=== PATIENT | female | born 1950 | race Caucasian/White ===

== ENCOUNTER → 2016-12-14 | Outpatient (CLI) | payer MEDICARE | LOC: LABWHC1 13:05 | PROVIDERS: ATTEND Internal Medicine Endocrinology, Diabetes & Metabolism | DX: C73 Malignant neoplasm of thyroid gland (principal); E89.0 Postprocedural hypothyroidism | CPT/HCPCS: 36415; 84432; 84439; 84443; 86800 ==

== ENCOUNTER → 2017-04-04 | Outpatient (CLI) | payer MEDICARE | END | disposition home or self-care (01) | LOC: LABWHC1 11:01 | PROVIDERS: ATTEND Internal Medicine Endocrinology, Diabetes & Metabolism | DX: E89.0 Postprocedural hypothyroidism (principal) | CPT/HCPCS: 36415; 84439; 84443 ==

== ENCOUNTER → 2017-08-13 | Outpatient (CLI) | payer MEDICARE ==
--- NOTE | 2017-08-13 19:57 | BD ---
EXAMINATION TYPE: MG DEXA axial skeleton. DATE OF EXAM: 08/13/2017 COMPARISON: 08/10/2015 CLINICAL HISTORY: 66 year-old male asymptomatic postmenopausal screening Height: 63.5 IN Weight: 152 LBS FRAX RISK QUESTIONS: Alcohol (3 or more units per day): NO Family History (Parent hip fracture): NO Glucocorticoids (More than 3mos): NO (Ex: prednisone, prednisolone, methylprednisolone, dexamethasone, and hydrocortisone). History of Fracture in Adulthood: YES LT FOOT FX, AND PATELLA FX Secondary Osteoporosis: 1. Type 1 Diabetes: NO 2. Hyperthyroidism: NO 3. Menopause before 45: AGE 47 4. Malnutrition: NO 5. Chronic liver disease: NO Rheumatoid Arthritis: NO Current Tobacco Use: NO RISK FACTORS HISTORY OF: Active: YES Postmenopausal woman: AGE 47 Take estrogen and/or progesterone medications: NOT NOW How long: AGE 47 - 52 MEDICATIONS: Thyroid Medications: Which medication: Synthroid How Long: SINCE 2000 Osteoporosis Medications: YES Which medication: Boniva How Long: OFF AND ON FOR 10 YEARS Additional Medications: CALCIUM, VIT D, BONIVA, SYNTHROID, MOBIC, AVNI-D, FISH OIL, MULTI VIT, BIO TIN, Additional History: THYROID CANCER WITH NUCLEAR RADIATION EXAM MEASUREMENTS: Bone mineral densitometry was performed using the [employer] System. Bone mineral density as measured about the Lumbar spine is: ----- L1-L4(G/cm2): 1.171 T Score Values are as follows: ----- L2: 0.0 ----- L3: 0.7 ----- L4: -0.1 ----- L1-L4: -0.1 Bone mineral density has: Decreased -0.2% since study of: 08/10/2015 Bone mineral density about the R hip (g/cm2): 0.896 Bone mineral density about the L hip (g/cm2): 0.859 T Score values are as follows: -----R Neck: -1.0 -----L Neck: -1.3 -----R Total: -0.3 -----L Total: 0.0 Bone mineral density has: Decreased -0.2% since study of: 08/10/2015 IMPRESSION: Osteopenia (T Score between -2.5 and -1 as noted by T score values There is slightly increased risk of fracture and the patient may be considered for treatment. Re-Screen 2-5 years. NOTE: T-SCORE=SD OF THE YOUNG ADULT MEAN.
--- NOTE | 2017-08-15 10:16 | MM ---
Reason for exam: screening (asymptomatic). Last mammogram was performed 1 year and 1 month ago. History: Patient is postmenopausal and has history of other cancer at age 50. Family history of breast cancer in maternal aunt. Taking other hormone for 10 years. Physical Findings: A clinical breast exam by your physician is recommended on an annual basis and results should be correlated with mammographic findings. MG 3D Screening Mammo W/Cad Bilateral CC and MLO view(s) were taken. Prior study comparison: July 22, 2016, bilateral MG 3d screening mammo w/cad. March 10, 2015, bilateral MG screening mammo w CAD. The breast tissue is heterogeneously dense. This may lower the sensitivity of mammography. No significant changes when compared with prior studies. ASSESSMENT: Negative, BI-RAD 1 RECOMMENDATION: Routine screening mammogram of both breasts in 1 year.
== END | disposition home or self-care (01) ==
LOC: RADMAMWWP 10:00
PROVIDERS: ATTEND Obstetrics & Gynecology
DX: Z12.31 Encounter for screening mammogram for malignant neoplasm of breast (principal); M85.852 Other specified disorders of bone density and structure, left thigh; M85.851 Other specified disorders of bone density and structure, right thigh
CPT/HCPCS: 77080; 77063; G0202

== ENCOUNTER → 2017-09-06 | Outpatient (CLI) | payer MEDICARE ==
--- NOTE | 2017-09-06 12:46 | ECHOF ---
Referral Reason:Abnormal EKG R94.31 MEASUREMENTS -------- HEIGHT: 162.6 cm WEIGHT: 68.0 kg BP: 102/56 RVIDd: 2.9 cm (< 3.3) IVSd: 1.1 cm (0.6 - 1.1) LVIDd: 3.8 cm (3.9 - 5.3) LVPWd: 1.1 cm (0.6 - 1.1) IVSs: 1.4 cm LVIDs: 2.9 cm LVPWs: 1.5 cm LA Diam: 3.3 cm (2.7 - 3.8) LAESV Index (A-L): 11.83 ml/m Ao Diam: 3.1 cm (2.0 - 3.7) AV Cusp: 1.9 cm (1.5 - 2.6) MV EXCURSION: 14.664 mm (> 18.000) MV EF SLOPE: 42 mm/s (70 - 150) EPSS: 0.8 cm MV E Nikhil: 0.59 m/s MV DecT: 185 ms MV A Nikhil: 0.64 m/s MV E/A Ratio: 0.92 RAP: 5.00 mmHg RVSP: 20.98 mmHg FINDINGS -------- Sinus rhythm. This was a technically good study. The left ventricular size is normal. There is borderline concentric left ventricular hypertrophy. Overall left ventricular systolic function is normal with, an EF between 55 - 60 %. The right ventricle is normal in size. Normal LA size by volume 22+/-6 ml/m2. The right atrium is normal in size. The aortic valve is trileaflet and appears structurally normal. Mild mitral annular calcification present. There is trace to mild mitral regurgitation. Mild tricuspid regurgitation present. Right ventricular systolic pressure is normal at < 35 mmHg. Trace/mild (physiologic) pulmonic regurgitation. The aortic root size is normal. Normal inferior vena cava with normal inspiratory collapse consistent with estimated right atrial pre ssure of 5 mmHg. There is no pericardial effusion. CONCLUSIONS -------- 1. Sinus rhythm. 2. This was a technically good study. 3. The left ventricular size is normal. 4. There is borderline concentric left ventricular hypertrophy. 5. Overall left ventricular systolic function is normal with, an EF between 55 - 60 %. 6. The right ventricle is normal in size. 7. Normal LA size by volume 22+/-6 ml/m2. 8. The right atrium is normal in size. 9. The aortic valve is trileaflet and appears structurally normal. 10. Mild mitral annular calcification present. 11. There is trace to mild mitral regurgitation. 12. Mild tricuspid regurgitation present. 13. Right ventricular systolic pressure is normal at < 35 mmHg. 14. Trace/mild (physiologic) pulmonic regurgitation. 15. The aortic root size is normal. 16. Normal inferior vena cava with normal inspiratory collapse consistent with estimated right atrial pressure of 5 mmHg. 17. There is no pericardial effusion. [employer] OPERATOR: Jayashree Avina RDCS
--- NOTE | 2017-09-06 12:57 | ECHOS ---
STRESS ECHOCARDIOGRAM DATE OF SERVICE: 09/06/2017 INDICATIONS: Abnormal EKG. MEDICATIONS: Boniva, Synthroid, Mobic. BASELINE HEART RATE: 81 BASELINE BLOOD PRESSURE: 102/68 MAXIMUM HEART RATE: 138 MAXIMUM BLOOD PRESSURE: 194/92 85% MPHR: 129 100% MPHR: 152 METS: 10.3 MAXIMUM STAGE REACHED: 3 TOTAL EXERCISE TIME: 9:00 CLINICAL INFORMATION: Baseline EKG revealed normal sinus rhythm with nonspecific ST and T-wave abnormality in the inferolateral leads. Patient walked on standard Jaime protocol for 9 minutes, achieved a maximum heart rate of 138 beats per minute which is more than 85% of predicted maximum. Resting heart rate is 81 beats per minute. Resting blood pressure was 102/68 and peak blood pressure was 194/92. EKG revealed nonspecific ST-T changes. There was no arrhythmia and she did not have any angina. By EKG criteria, this is an inconclusive stress test because of resting EKG changes with a reasonably decent exercise capacity. Baseline echo images revealed normal wall motion and wall thickening of all segments. At peak exercise, there was good augmentation of left ventricular wall motion and wall thickening of all segments suggesting that there was no evidence of stress-induced ischemia on this study. FINAL IMPRESSION: 1. Good exercise capacity with inconclusive stress test by EKG criteria because of resting EKG changes. 2. Normal stress echocardiogram without evidence of ischemia. MMODL / IJN: [id number] /
== END | disposition home or self-care (01) ==
LOC: RADNMMAIN 10:36
PROVIDERS: ATTEND Family Medicine
DX: I08.1 Rheumatic disorders of both mitral and tricuspid valves (principal)
CPT/HCPCS: 93017; 93306; 93350

== ENCOUNTER → 2018-03-26 | Outpatient (CLI) | payer MEDICARE ==
[2018-03-26 12:18] LABS: T4, Free (Free Thyroxine) 1.8 ng/dL (0.78-2.19)
[2018-03-26 19:27] LABS: Thyroglobulin <0.20 ng/mL (1.60-59.90)
== END | disposition home or self-care (01) ==
LOC: LABWHC1 11:18
PROVIDERS: ATTEND Internal Medicine Endocrinology, Diabetes & Metabolism
DX: C73 Malignant neoplasm of thyroid gland (principal); E89.0 Postprocedural hypothyroidism
CPT/HCPCS: 36415; 84432; 84439; 84443; 86800

== ENCOUNTER → 2018-07-30 | Outpatient (CLI) | payer MEDICARE ==
[2018-07-31 05:46] LABS: T4, Free (Free Thyroxine) 1.2 ng/dL (0.80-1.80)
== END | disposition home or self-care (01) ==
LOC: LABWHC1 16:50
PROVIDERS: ATTEND Internal Medicine Endocrinology, Diabetes & Metabolism
DX: C73 Malignant neoplasm of thyroid gland (principal)
CPT/HCPCS: 36415; 84439; 84443

== ENCOUNTER → 2018-08-14 | Outpatient (CLI) | payer MEDICARE ==
--- NOTE | 2018-08-14 11:25 | BD ---
EXAMINATION TYPE: Axial Bone Density DATE OF EXAM: 08/14/2018 COMPARISON: 2017 CLINICAL HISTORY: age related osteoporosis Height: 5'4 1/2 Weight: 137 FRAX RISK QUESTIONS: History of Fracture in Adulthood: y Secondary Osteoporosis: RISK FACTORS HISTORY OF: Postmenopausal woman: y MEDICATIONS: Thyroid Medications: Which medication: Synthroid How Lon Osteoporosis Medications: Which medication: Boniva How Lon years Additional Medications: arthritis, eye drops Additional History: thyroid cancer 2000 , thyroidectomy EXAM MEASUREMENTS: Bone mineral densitometry was performed using the [employer] System. Bone mineral density as measured about the Lumbar spine is: ----- L1-L4(G/cm2): 1.192 T Score Values are as follows: ----- L2: 0.2 ----- L3: 0.7 ----- L4: 0.4 ----- L1-L4:0.1 Bone mineral density has: Increased 2.4% since study of: 08/13/2017 Bone mineral density about the R hip (g/cm2): 0.888 Bone mineral density about the L hip (g/cm2): 0.865 T Score values are as follows: -----R Neck: -1.1 -----L Neck: -1.2 -----R Total: -0.4 -----L Total: -0.1 Bone mineral density has: Decreased -0.8% since study of: 08/13/2017 IMPRESSION: No evidence for osteoporosis or osteopenia. NOTE: T-SCORE=SD OF THE YOUNG ADULT MEAN.
--- NOTE | 2018-08-16 12:57 | MM ---
Reason for exam: screening (asymptomatic). Last mammogram was performed 1 year ago. History: Patient is postmenopausal and has history of other cancer at age 50. Family history of breast cancer in maternal aunt. Taking other hormone for 10 years. Physical Findings: A clinical breast exam by your physician is recommended on an annual basis and results should be correlated with mammographic findings. MG 3D Screening Mammo W/Cad Bilateral CC and MLO view(s) were taken. Prior study comparison: August 13, 2017, bilateral MG 3d screening mammo w/cad. July 22, 2016, bilateral MG 3d screening mammo w/cad. The breast tissue is heterogeneously dense. This may lower the sensitivity of mammography. There are benign appearing round calcifications bilaterally. There is no discrete abnormality. ASSESSMENT: Benign, BI-RAD 2 RECOMMENDATION: Routine screening mammogram of both breasts in 1 year.
== END ==
LOC: RADMAMWWP 08:02
PROVIDERS: ATTEND Obstetrics & Gynecology
DX: Z12.31 Encounter for screening mammogram for malignant neoplasm of breast (principal); M81.0 Age-related osteoporosis without current pathological fracture
CPT/HCPCS: 77063; 77067; 77080

== ENCOUNTER → 2018-09-30 | Outpatient (CLI) | payer MEDICARE ==
--- NOTE | 2018-09-30 18:16 | XR ---
EXAMINATION TYPE: XR Hip Bilateral Complete DATE OF EXAM: 09/30/2018 COMPARISON: NONE HISTORY: 68 year-old female chronic hip pain, mostly on the left side, osteoarthritis TECHNIQUE: 2 views each side FINDINGS: There is mild marginal spurring at the hips, left greater than right. There may be minimal axial join t space narrowing on both sides. Sclerotic focus left superior pubic ramus nonspecific, possible bone island. No acute fracture, subluxation, or dislocation. IMPRESSION: 1. Very mild degenerative changes on both sides, left greater than right. 2. No acute osseous modality seen. 3. 1.9 cm sclerotic focus left superior pubic ramus probably incidental bone island. If an underlying osteoblastic lesion is clinically suspected, CT of the pelvis can be considered. Whole body bone sca n yay also be considered to survey the entire skeleton if indicated.
== END | disposition home or self-care (01) ==
LOC: RADXRMAIN 11:04
PROVIDERS: ATTEND Family Medicine
DX: M16.0 Bilateral primary osteoarthritis of hip (principal)
CPT/HCPCS: 73521

== ENCOUNTER → 2018-10-08 | Outpatient (CLI) | payer MEDICARE ==
[2018-10-08 09:45] LABS: Blood Urea Nitrogen 19 mg/dL (7-17)
--- NOTE | 2018-10-08 10:53 | CT ---
EXAMINATION TYPE: CT pelvis w con DATE OF EXAM: 10/08/2018 COMPARISON: X-ray 09/30/2018 HISTORY: Left hip benign neoplasm of bone CT DLP: 620.4 mGycm Automated exposure control for dose reduction was used. CONTRAST: Performed with IV Contrast, patient injected with 100 mL of Isovue 300. FINDINGS: There is mild marginal spurring at the hips. There may be minimal axial joint space narrowing on both sides. Sclerotic focus left superior pubic ramus nonspecific, possible bone island. No acute fractur e, subluxation, or dislocation. No soft tissue mass. Severe degenerative change lower lumbar spine. Diffuse osteopenia noted. Parapelvic renal cysts are s een. There is a large 5.1 cm left adnexal cyst. Multiple right-sided renal calculi. Suspect bilateral mild hydronephrosis. IMPRESSION: ARTHROPATHY. SCLEROTIC LESION IS NONSPECIFIC BUT LIKELY RELATED TO BONE ISLAND. IF THERE IS A HISTORY OF MALIGNANCY THAN CORRELATION WITH BONE SCAN COULD BE OBTAINED TO ASSESS FOR ACTIVITY. FINDING MOST LIKELY IS BENIGN. THERE IS A LARGE LEFT ADNEXAL CYST MEASURING 5.1 CM LIKELY IS OVARIAN IN ETIOLOGY. THIS IS SOMEWHAT A TYPICAL GIVEN THE PATIENT'S DEMOGRAPHICS RECOMMEND FOLLOW-UP ULTRASOUND PELVIS. MULTIPLE RIGHT-SIDED RENAL CALCULI NOTED SUSPECTED BILATERAL MILD HYDRONEPHROSIS HETEROGENEOUS DENSITY IN THE BLADDER LIKELY REPRESENTS MIXING OF CONTRAST AND URINE. CORRELATE CLINIC SAMIRA..
== END ==
LOC: RADCTMAIN 08:09
PROVIDERS: ATTEND Family Medicine
DX: D16.9 Benign neoplasm of bone and articular cartilage, unspecified (principal)
CPT/HCPCS: 82565; 84520; 72193; 36415; Q9967

== ENCOUNTER → 2018-10-22 | Outpatient (CLI) | payer MEDICARE ==
--- NOTE | 2018-10-22 16:19 | NM ---
EXAMINATION TYPE: NM bone scan whole body DATE OF EXAM: 10/22/2018 COMPARISON: NONE HISTORY: Hypertrophy of bone Delayed whole-body scanning was performed following the injection of 23.7 mCi Tc 99m MDP. Images acq uired 3 hours post injection. FINDINGS: Uptake is again noted throughout the upper and lower cervical spine. There is also mild increased upt vivian seen at the thoracolumbar junction as well as well as within the lumbar spine likely degenerative in nature. Focal increased uptake is seen at the left AC joint which may be degenerative in nature. Degenerative uptake is seen about the right knee as well as the right foot and first metatarsophalang eal joints bilaterally. IMPRESSION: Probable degenerative changes noted. Overall no significant change appreciated.
== END | disposition home or self-care (01) ==
LOC: RADNMMAIN 09:55
PROVIDERS: ATTEND Family Medicine
DX: M89.30 Hypertrophy of bone, unspecified site (principal)
CPT/HCPCS: 78306; A9503

== ENCOUNTER → 2019-03-28 | Outpatient (CLI) | payer MEDICARE ==
[2019-03-28 16:24] LABS: T4, Free (Free Thyroxine) 1.4 ng/dL (0.80-1.80)
[2019-03-28 18:13] LABS: Thyroglobulin <0.20 ng/mL (1.60-59.90)
== END | disposition home or self-care (01) ==
LOC: LABWHC1 08:53
PROVIDERS: ATTEND Internal Medicine Endocrinology, Diabetes & Metabolism
DX: E89.0 Postprocedural hypothyroidism (principal)
CPT/HCPCS: 36415; 84432; 84439; 84443; 86800

== ENCOUNTER → 2019-05-30 | Outpatient (CLI) | payer MEDICARE ==
--- NOTE | 2019-05-30 14:39 | US ---
EXAMINATION TYPE: US kidneys/renal and bladder DATE OF EXAM: 05/30/2019 COMPARISON: CT 2019 CLINICAL HISTORY: N31.9 Hydronephrosis, bilateral. History of hydronephrosis and renal stones, patien t states no symptoms. EXAM MEASUREMENTS: Right Kidney: 9.9 x 5.4 x 5.3 cm Left Kidney: 11.0 x 4.4 x 4.8 cm Right Kidney: multiple stones seen with largest inferior pole measuring 1.4 x 1.1 x 1.2cm, mild hydro nephrosis Left Kidney: 2.3 x 1.5 x 2.3cm cyst superior pole, mild hydronephrosis Bladder: wnl Bilateral Jets seen: yes No suspicious masses are identified. The urinary bladder is anechoic. Bilateral ureteral jets are s een. IMPRESSION: Mild bilateral hydronephrosis with nonobstructing right renal calculi measuring up to 1.4 cm. Incidentally noted left renal cyst.
== END | disposition home or self-care (01) ==
LOC: RADUSWWP 13:10
PROVIDERS: ATTEND Urology
DX: N13.30 Unspecified hydronephrosis (principal); N20.0 Calculus of kidney; Z88.1 Allergy status to other antibiotic agents
CPT/HCPCS: 76770

== ENCOUNTER 2019-06-27 10:11 | Day surgery (SDC) | payer MEDICARE ==
[2019-06-24 16:18] VITALS: BMI 25.7
[~2019-06-27 10:11] MED LIST: LACTATED RINGERS 1,000 ML IV SCH; LIDOCAINE 1% 20 ML VIAL (10MG/ML) FOR IV START INTRADERMA PRN
[2019-06-27 10:34] VITALS: RESP 16; TEMP 98.4
[2019-06-27] MEDS ORDERED: PROPOFOL 10 MG/ML 20 ML VIAL IV ONE (11:39)
--- NOTE | 2019-06-27 12:04 | P.PCN ---
Date of Procedure: 06/27/19 Procedure(s) Performed: BRIEF HISTORY: Patient is a 68-year-old pleasant white female scheduled for an elective colonoscopy as a part of screening for colorectal neoplasia. Her last colonoscopy was 10 years ago. PROCEDURE PERFORMED: Colonoscopy. PREOPERATIVE DIAGNOSIS: Screening for colon cancer. IV sedation per Anesthesia. PROCEDURE: After informed consent was obtained, the patient, was brought into the endoscopy unit. IV sedation was administered by Anesthesia under continuous monitoring. Digital rectal examination was normal. Initially the Olympus CF-160 flexible video colonoscope was then inserted in the rectum, gradually advanced into the cecum without any difficulty. Careful examination was performed as the scope was gradually being withdrawn. Ileocecal valve and the appendiceal orifice were visualized and appeared normal. Prep was excellent. Mucosa of the cecum, ascending colon, transverse colon, descending colon, sigmoid colon, and rectum appeared normal. Scattered sigmoid diverticulosis. Retroflexion was performed in the rectum and no lesions were seen. The patient tolerated the procedure well. IMPRESSION: Normal-appearing colon from rectum to cecum with no evidence of colorectal neoplasia . Scattered sigmoid diverticulosis. RECOMMENDATIONS: Findings of this examination were discussed with the patient as well as her family. She was advised to have a repeat screening colonoscopy in 10 years.
[2019-06-27 12:28] VITALS: BP 134/83; PULSE 74
== END 2019-06-27 13:01 | disposition home or self-care (01) ==
LOC: ORWHC2ENDO 10:11
PROVIDERS: ATTEND Internal Medicine Gastroenterology
DX: Z12.11 Encounter for screening for malignant neoplasm of colon (principal); K57.30 Diverticulosis of large intestine without perforation or abscess without bleeding; E89.0 Postprocedural hypothyroidism; Z88.8 Allergy status to other drugs, medicaments and biological substances; Z88.7 Allergy status to serum and vaccine; Z87.442 Personal history of urinary calculi; Z79.1 Long term (current) use of non-steroidal anti-inflammatories (NSAID); Z79.890 Hormone replacement therapy; Z79.899 Other long term (current) drug therapy; Z85.850 Personal history of malignant neoplasm of thyroid
CPT/HCPCS: G0121; J2704; 45378

== ENCOUNTER → 2019-08-30 | Outpatient (CLI) | payer MEDICARE ==
--- NOTE | 2019-09-01 10:01 | MM ---
Reason for exam: screening (asymptomatic). Last mammogram was performed 1 year and 1 month ago. History: Patient is postmenopausal and has history of other cancer at age 50. Family history of breast cancer in maternal aunt. Took hormonal contraceptives for 7 years. Taking other hormone for 10 years. Physical Findings: A clinical breast exam by your physician is recommended on an annual basis and results should be correlated with mammographic findings. MG Screening Mammo w CAD Bilateral CC and MLO view(s) were taken. Prior study comparison: August 14, 2018, bilateral MG 3d screening mammo w/cad. August 13, 2017, bilateral MG 3d screening mammo w/cad. The breast tissue is heterogeneously dense. This may lower the sensitivity of mammography. There is no discrete abnormality. No significant changes when compared with prior studies. ASSESSMENT: Negative, BI-RAD 1 RECOMMENDATION: Routine screening mammogram of both breasts in 1 year.
== END | disposition home or self-care (01) ==
LOC: RADMAMWWP 08:36
PROVIDERS: ATTEND Obstetrics & Gynecology
DX: Z12.31 Encounter for screening mammogram for malignant neoplasm of breast (principal)
CPT/HCPCS: 77067

== ENCOUNTER → 2019-10-07 | Outpatient (CLI) | payer MEDICARE ==
--- NOTE | 2019-10-07 12:34 | XR ---
EXAM TYPE: LUMBAR SPINE X RAY SERIES COMPARISON: NONE HISTORY: Pain TECHNIQUE: 4 views are submitted. FINDINGS: Alignment is anatomic. The pedicles are intact. The transverse processes are intact. Calcification right upper quadrant measuring 6 mm could relate to a kidney stone or gallstone. Curvature the spine with multilevel hypertrophic and degenerative disc disease. Multilevel significant facet arthropathy. No compression deformities. IMPRESSION: 1. Diffuse osteopenia with scoliosis and multilevel severe degenerative disc disease and facet arthro nikolas.
== END | disposition home or self-care (01) ==
LOC: RADXRMAIN 12:08
PROVIDERS: ATTEND Family Medicine
DX: M51.17 Intervertebral disc disorders with radiculopathy, lumbosacral region (principal); M41.87 Other forms of scoliosis, lumbosacral region; M46.97 Unspecified inflammatory spondylopathy, lumbosacral region; M85.88 Other specified disorders of bone density and structure, other site
CPT/HCPCS: 72110

== ENCOUNTER → 2020-04-07 | Outpatient (CLI) | payer MEDICARE ==
[2020-04-07 19:05] LABS: T4, Free (Free Thyroxine) 1.4 ng/dL (0.80-1.80)
== END | disposition home or self-care (01) ==
LOC: LABWHC1 11:51
PROVIDERS: ATTEND Internal Medicine
DX: E89.0 Postprocedural hypothyroidism (principal)
CPT/HCPCS: 36415; 84439; 84443

== ENCOUNTER → 2020-05-27 | Outpatient (CLI) | payer MEDICARE | END | disposition home or self-care (01) | LOC: LABWHC1 10:07 | PROVIDERS: ATTEND Ophthalmology | DX: Z20.828 Contact with and (suspected) exposure to other viral communicable diseases (principal) | CPT/HCPCS: U0003; C9803 ==

== ENCOUNTER → 2020-07-13 | Outpatient (CLI) | payer MEDICARE | END | disposition home or self-care (01) | LOC: LABWHC1 11:50 | PROVIDERS: ATTEND Ophthalmology | DX: Z01.812 Encounter for preprocedural laboratory examination (principal); H04.223 Epiphora due to insufficient drainage, bilateral | CPT/HCPCS: U0003; C9803 ==

== ENCOUNTER → 2020-08-09 | Outpatient (CLI) | payer MEDICARE ==
--- NOTE | 2020-08-11 14:48 | HM ---
HOLTER MONITOR REPORT 24 HOUR HOLTER MONITOR: INDICATION: Cardiac arrhythmia. The patient was monitored for 24 hours. The baseline rhythm appeared to be sinus mechanism with a minimum heart rate of 66, max 120 and average heart rate of 89 beats per minute. Ventricular ectopic events presented in less than 1% of the total beats count as well as supraventricular ectopic events. No evidence of any sinus pause or sinus arrest. No diary was attached to the study. CONCLUSION: 1. Sinus rhythm as a baseline mechanism. 2. Rare ventricular ectopic events. 3. Rare supraventricular ectopic events. There is no evidence of any sustained tachy or bradyarrhythmia. 4. No evidence of sinus pause or sinus arrest. 5. No diary was attached to the study. MMODL / IJN: [id number] /
== END | disposition home or self-care (01) ==
LOC: RADECHMAIN 12:21
PROVIDERS: ATTEND Family Medicine
DX: R00.2 Palpitations (principal)
CPT/HCPCS: 93225; 93226

== ENCOUNTER → 2020-08-30 | Outpatient (CLI) | payer MEDICARE ==
--- NOTE | 2020-08-31 15:47 | BD ---
EXAMINATION TYPE: Axial Bone Density DATE OF EXAM: 08/30/2020 COMPARISON: 08.13.2017 CLINICAL HISTORY: 69 YR OLD FEMALE...ICD-10 CODE: M81.0 AGE-RELATED OSTEOPOROSIS Height: 63.5 Weight: 155 FRAX RISK QUESTIONS: Glucocorticoids (More than 3mos): YES (Ex: prednisone, prednisolone, methylprednisolone, dexamethasone, and hydrocortisone). History of Fracture in Adulthood: YES RISK FACTORS HISTORY OF: HX OF PATELLA FX, LT FOOT, >50 YRS OLD Surgery to Spine LAMINECTOMY IN CERVICAL SPINE 2014 Family History of Osteoporosis: YES, MOTHER, Active: YES Postmenopausal woman: YES, AT ABOUT 50 YRS Take estrogen and/or progesterone medications: ERT FOR ABOUT 2 YRS ONLY....IN THE PAST, NONE NOW Hyperparathyroidism: NO Adrenal Insufficiency: NO MEDICATIONS: Prednisone or other steroids: YES, FOR MULTIPLE ISSUES, ON AND OFF FOR MANY YRS Thyroid Medications: SYNTHROID, FOR 9-10 YRS Osteoporosis Medications: BONIVA MONTHLY, ON AND OFF FOR ABOUT 10 YRS Additional Medications: THYROID KILLED WITH RADIATION, CALCIUM AND VIT D, MOBIC Additional History: THYROID CA, 2000, EYE SURGERIES MULTIPLE, FOR TEARDUCTS, SCOLIOSIS, OSTEOARTHRITI S EXAM MEASUREMENTS: Bone mineral densitometry was performed using the [email or web address] System. Bone mineral density as measured about the Lumbar spine is: ----- L1-L4(G/cm2): 1.261 T Score Values are as follows: ----- L1: -1.2 ----- L2: 0.6 ----- L3: 2.0 ----- L4: 0.9 ----- L1-L4: 0.7 Bone mineral density has: Increased 9.1% since study of: 08.13.2017 Bone mineral density about the R hip (g/cm2): 0.958 Bone mineral density about the L hip (g/cm2): 0.995 T Score values are as follows: -----R Neck: -1.0 -----L Neck: -0.8 -----R Total: -0.4 -----L Total: -0.1 Bone mineral density has: Decreased -0.8% since study of: 08.13.2017 FRAX%s: THERE IS A 22.0% CHANCE FOR A MAJOR OSTEOPOROTIC FX AND A 2.9% FOR HIP......PROBABILITY FO R FX IN 10 YRS TIME IMPRESSION: Normal (Values between +1 and -1 indicate normal bone mass). Consider repeating this study in 5 year s or sooner if there is some new clinical indication. NOTE: T-SCORE=SD OF THE YOUNG ADULT MEAN.
== END | disposition home or self-care (01) ==
LOC: RADBDWWP 12:25
PROVIDERS: ATTEND Obstetrics & Gynecology
DX: M81.0 Age-related osteoporosis without current pathological fracture (principal)
CPT/HCPCS: 77080

== ENCOUNTER → 2020-08-31 | Outpatient (CLI) | payer MEDICARE ==
--- NOTE | 2020-09-01 10:44 | MM ---
Reason for exam: screening (asymptomatic). Last mammogram was performed 1 year ago. History: Patient is postmenopausal and has history of other cancer at age 50. Family history of breast cancer in maternal aunt. Took hormonal contraceptives for 7 years. Taking other hormone for 10 years. Physical Findings: A clinical breast exam by your physician is recommended on an annual basis and results should be correlated with mammographic findings. MG 3D Screening Mammo W/Cad Bilateral CC and MLO view(s) were taken. Prior study comparison: August 30, 2019, bilateral MG screening mammo w CAD. August 14, 2018, bilateral MG 3d screening mammo w/cad. The breast tissue is heterogeneously dense. This may lower the sensitivity of mammography. There are benign appearing round calcifications bilaterally. There is no discrete abnormality. ASSESSMENT: Benign, BI-RAD 2 RECOMMENDATION: Routine screening mammogram of both breasts in 1 year.
== END | disposition home or self-care (01) ==
LOC: RADMAMWWP 10:05
PROVIDERS: ATTEND Obstetrics & Gynecology
DX: Z12.31 Encounter for screening mammogram for malignant neoplasm of breast (principal)
CPT/HCPCS: 77063; 77067

== ENCOUNTER → 2020-12-16 | Outpatient (CLI) | payer MEDICARE | END | disposition home or self-care (01) | LOC: LABWHC1 11:23 | PROVIDERS: ATTEND Ophthalmology | DX: Z20.822 Contact with and (suspected) exposure to COVID-19 (principal); H04.223 Epiphora due to insufficient drainage, bilateral | CPT/HCPCS: U0003; C9803; U0005 ==

== ENCOUNTER → 2020-12-31 | Outpatient (CLI) | payer MEDICARE ==
[2020-12-31 20:34] LABS: T4, Free (Free Thyroxine) 1.4 ng/dL (0.80-1.80)
[2020-12-31 20:39] LABS: C Reactive Protein 1.1 mg/dL (0.0-0.8)
[2021-01-01 01:22] LABS: DNA Double-Stranded NEGATIVE (NEGATIVE)
== END | disposition home or self-care (01) ==
LOC: LABWHC1 11:01
PROVIDERS: ATTEND Psychiatry & Neurology Neurology
DX: M35.3 Polymyalgia rheumatica (principal); M79.10 Myalgia, unspecified site
CPT/HCPCS: 36415; 82306; 82550; 84439; 84443; 85652; 86038; 86039; 86140; 86225

== ENCOUNTER → 2021-02-02 | Outpatient (CLI) | payer MEDICARE | END | disposition home or self-care (01) | LOC: LABWHC1 09:40 | PROVIDERS: ATTEND Ophthalmology | DX: Z01.812 Encounter for preprocedural laboratory examination (principal); Z20.822 Contact with and (suspected) exposure to COVID-19; H04.221 Epiphora due to insufficient drainage, right side | CPT/HCPCS: U0003; C9803; U0005 ==

== ENCOUNTER → 2021-07-20 | Outpatient (CLI) | payer MEDICARE ==
[2021-07-21 01:32] LABS: T4, Free (Free Thyroxine) 1.56 ng/dL (0.800-1.800)
== END | disposition home or self-care (01) ==
LOC: LABWHC1 12:23
PROVIDERS: ATTEND Internal Medicine
DX: C73 Malignant neoplasm of thyroid gland (principal); E03.9 Hypothyroidism, unspecified; E55.9 Vitamin D deficiency, unspecified
CPT/HCPCS: 36415; 82306; 84432; 84439; 84443; 86800

== ENCOUNTER → 2021-07-27 | Outpatient (CLI) | payer MEDICARE | END | disposition home or self-care (01) | LOC: LABWHC1 12:53 | PROVIDERS: ATTEND Ophthalmology | DX: H02.055 Trichiasis without entropion left lower eyelid (principal) | CPT/HCPCS: U0003; C9803 ==

== ENCOUNTER → 2021-09-01 | Outpatient (CLI) | payer MEDICARE ==
--- NOTE | 2021-09-01 13:49 | MM ---
Reason for exam: screening (asymptomatic). Last mammogram was performed 1 year ago. History: Patient is postmenopausal and has history of other cancer at age 50. Family history of breast cancer in maternal aunt. Took hormonal contraceptives for 7 years. Taking other hormone for 10 years. Physical Findings: A clinical breast exam by your physician is recommended on an annual basis and results should be correlated with mammographic findings. MG 3D Screening Mammo W/Cad Bilateral CC and MLO view(s) were taken. Prior study comparison: August 31, 2020, bilateral MG 3d screening mammo w/cad. August 30, 2019, bilateral MG screening mammo w CAD. The breast tissue is heterogeneously dense. This may lower the sensitivity of mammography. There is no discrete abnormality. ASSESSMENT: Negative, BI-RAD 1 RECOMMENDATION: Routine screening mammogram of both breasts in 1 year.
== END | disposition home or self-care (01) ==
LOC: RADMAMWWP 08:22
PROVIDERS: ATTEND Obstetrics & Gynecology
DX: Z12.31 Encounter for screening mammogram for malignant neoplasm of breast (principal)
CPT/HCPCS: 77063; 77067

== ENCOUNTER → 2021-09-06 | Outpatient (CLI) | payer MEDICARE ==
--- NOTE | 2021-09-06 16:01 | CT ---
"EXAMINATION TYPE: CT abdomen pelvis wo con DATE OF EXAM: 09/06/2021 HISTORY: abdominal pain in particular right lower quadrant pain and vomiting CT DLP: 473.2 mGycm. Automated Exposure Control for Dose Reduction was Utilized. TECHNIQUE: CT scan of the abdomen and pelvis is performed with oral but without IV contrast. COMPARISON: CT pelvis October 08, 2018 FINDINGS: Within the limitations of a non-contrast study, the following observations are made. LUNG BASES: Mild cardiomegaly. Mild to moderate bibasilar linear scarring and/or atelectasis LIVER/GB: Simple appearing 2.4 cm thin-walled cyst anterior in the liver axial image 22. PANCREAS: No significant abnormality is seen. SPLEEN: No significant abnormality is seen. ADRENALS: No significant abnormality is seen. KIDNEYS: No left-sided renal calculi. Central prominence favors parapelvic cysts as there is no hydro ureter. There are approximately 6 scattered right renal calculi including 7 mm calculus lower pole le ko posteriorly image 41. In addition there is obstructing 17 mm calculus at UPJ coronal image 47 cau sing moderate right-sided hydronephrosis. BOWEL: Moderate right-sided colonic fecal prominence including cecum. Mild additional scattered colon ic fecal prominence. No small or large bowel dilatation. Oral contrast does not reach colonic level. Incidental normal-appearing appendix medially from the cecum. GENITAL ORGANS: Anteverted uterus. Slightly larger 5.5 x 4.6 cm posterior left pelvic presumed ovaria n cyst or cystic lesion axial image 66. Suspect tubal ligation clip left pelvis axial image 67 change d in position from right pelvis on prior study. LYMPH NODES: No greater than 1cm abdominal or pelvic lymph nodes are appreciated. OSSEOUS STRUCTURES: Osseous structures are demineralized. Grade 1 anterolisthesis L2 on L3. Moderate disc space narrowing L2-L3 with vacuum disc phenomenon. Advanced disc space narrowing affecting this phenomenon L5-S1 level. Moderate disc space narrowing L3-L4 level with vacuum disc phenomenon. Underl jo-ann levoconvex scoliosis centered at L1-L2 level redemonstrated. OTHER: No significant additional abnormality is seen. IMPRESSION: 1. Mild to moderate diffuse colonic fecal stasis. No bowel obstruction. 2. Right-sided renal calculi are redemonstrated. There is interval presumed movement of large lower p yelocaliectasis calculus prior study now at UPJ measuring up to 17 mm currently causing moderate to s evere right-sided hydronephrosis. Advise urology referral for further workup and treatment. 3. Slightly larger 5.5 cm thin-walled left pelvic cyst or cystic lesion presumed of ovarian origin fa voring benign etiology, pelvic ultrasound follow-up to better evaluate and characterize can be perfor med. A Yellow level critical message alert has been initiated for Kwaku Uriostegui MD via the [employer] 36 0 | Critical Results System on 09/06/2021 3:58 PM. This message alert has been sent to Kwaku Uriostegui MD via the preferences provided by the clinician for the receipt of Radiology Critical Findings. Nj ssage ID [id number]."
== END | disposition home or self-care (01) ==
LOC: RADCTMAIN 13:54
PROVIDERS: ATTEND Family Medicine
DX: N20.0 Calculus of kidney (principal)
CPT/HCPCS: 74176

== ENCOUNTER → 2021-09-08 | Outpatient (CLI) | payer MEDICARE ==
[2021-09-08 10:17] LABS: Basophils % (A) 1 %; Eosinophils # (A) 0.1 k/uL (0-0.7); Eosinophils % (A) 4 %; HCT 41.5 % (34.0-46.0); HGB 13.5 gm/dL (11.4-16.0); Lymphocytes # (A) 1.2 k/uL (1.0-4.8); Lymphocytes % (A) 31 %; MCH 29.6 pg (25.0-35.0); MCHC 32.6 g/dL (31.0-37.0); MCV 90.8 fL (80.0-100.0); Mean Platelet Volume 7.6; Monocytes # (A) 0.3 k/uL (0-1.0); Monocytes % (A) 6 %; Neutrophils # (A) 2.1 k/uL (1.3-7.7); Neutrophils % (A) 56 %; Platelet Count 171 k/uL (150-450); RBC 4.57 m/uL (3.80-5.40); RDW 12.7 % (11.5-15.5); WBC 3.8 k/uL (3.8-10.6)
[2021-09-08 10:21] LABS: Appearance,Urine Clear (Clear); Bilirubin,Urine Negative (Negative); Blood,Urine Negative (Negative); Color,Urine Light Yellow; Glucose,Urine (UA) Negative (Negative); Ketones,Urine Negative (Negative); Leukocyte Esterase,Urine Trace (Negative); Nitrite,Urine Negative (Negative); Protein,Urine Negative (Negative); RBC,Urine 1 /hpf (0-5); Specific Gravity,Urine 1.004 (1.001-1.035); Urobilinogen,Urine <2.0 mg/dL (<2.0); WBC,Urine 3 /hpf (0-5)
[2021-09-08 10:37] LABS: ALT 18 U/L (4-34); AST 22 U/L (14-36); African American GFR (CKD) >90 (>60 ml/min/1.73 sqM); Albumin 4.1 g/dL (3.5-5.0); Alkaline Phosphatase 73 U/L (38-126); Anion Gap 6 mmol/L; Blood Urea Nitrogen 19 mg/dL (7-17); Calcium 9.3 mg/dL (8.4-10.2); Carbon Dioxide 27 mmol/L (22-30); Chloride 106 mmol/L (98-107); Glucose 98 mg/dL (74-99); Non-African American GFR(CKD) 87 (>60 ml/min/1.73 sqM); Sodium 139 mmol/L (137-145); Total Bilirubin 0.3 mg/dL (0.2-1.3); Total Protein 6.5 g/dL (6.3-8.2)
== END | disposition home or self-care (01) ==
LOC: LABPAT 09:44
PROVIDERS: ATTEND Urology
DX: Z01.812 Encounter for preprocedural laboratory examination (principal); N20.0 Calculus of kidney
CPT/HCPCS: 36415; 80053; 81001; 85025; 87086; 93005

== ENCOUNTER 2021-09-14 08:56 | Observation (INO) | payer MEDICARE ==
[2021-09-08 12:47] VITALS: BMI 27.4
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
[~2021-09-14 08:56] MED LIST changes: -LACTATED RINGERS 1,000 ML IV SCH; +LIDOCAINE 1% (10MG/ML) FOR IV START INTRADERMA PRN; -LIDOCAINE 1% 20 ML VIAL (10MG/ML) FOR IV START INTRADERMA PRN; +MIDAZOLAM 2 MG/2 ML VIAL IV PRN; +ONDANSETRON 4 MG/2 ML VIAL IVP PRN
--- NOTE | 2021-09-14 09:22 | XR ---
EXAMINATION TYPE: XR KUB DATE OF EXAM: 09/14/2021 HISTORY: Pain Comparison: None.Single KUB is submitted for interpretation. Findings: Right renal calculi: 3 calculi overlying the lower pole right kidney measuring up to 5.2 mm. Right ureteral calculi: None Visualized. Left renal calculi: None Visualized. Left ureteral calculi: None Visualized. Pelvic calcifications: None Visualized. Bowel gas pattern is unremarkable. No free air. No mass effects. IMPRESSION: 1. 3 calculi overlying the lower pole right kidney measuring up to 5.2 mm.
[2021-09-14] MEDS: LACTATED RINGERS 1,000 ML IV SCH (09:55)
[2021-09-14] MEDS ORDERED: MIDAZOLAM 2 MG/2 ML VIAL ONE (11:40)
[2021-09-14] MEDS ORDERED: fentaNYL (PF) 50 MCG/ML 2 ML AMP ONE (11:40)
[2021-09-14] MEDS ORDERED: SUCCINYLCHOLINE CHLORIDE 100 MG/5 ML SYR IV ONE (11:40)
[2021-09-14] MEDS ORDERED: LIDOCAINE 1% INJ 10MG/ML (20 ML MDV) ONE (11:40)
[2021-09-14] MEDS ORDERED: PROPOFOL 10 MG/ML 20 ML VIAL IV ONE (11:40)
[2021-09-14] MEDS ORDERED: ePHEDrine 50 MG/ML 1 ML AMP ONE (11:40)
[2021-09-14] MEDS ORDERED: IOPAMIDOL-370 50ML BTL MISCELLANE ONE (12:58)
[2021-09-14] MEDS ORDERED: ACETAMINOPHEN TAB 500 MG TAB PO PRN (13:48)
[2021-09-14] MEDS ORDERED: FLUTICASONE 50MCG/SPRAY NASAL 16GM EA NOSTRIL PRN (13:48)
[2021-09-14] MEDS ORDERED: HYDROmorphone PCA 10 MG/50 ML BAG IV PRN (13:49)
[2021-09-14] MEDS ORDERED: NALOXONE 0.4 MG/ML 1 ML VIAL IV PRN (13:49)
[2021-09-14] MEDS ORDERED: ONDANSETRON 4 MG/2 ML VIAL IVP PRN (13:50)
[2021-09-14] MEDS ORDERED: MAG HYDROX/AL HYDROX/SIMETH 30 ML CUP PO PRN (13:50)
[2021-09-14] MEDS ORDERED: ACETAMINOPHEN TAB 325 MG TAB PO PRN (13:50)
--- NOTE | 2021-09-14 13:55 | P.OP ---
Date of Procedure: 09/14/21 Preoperative Diagnosis: Right renal stones (large) greater than 2 cm Postoperative Diagnosis: Same Procedure(s) Performed: Cystoscopy, placement of ureteral catheter right, percutaneous nephrostomy (Dr. guzman), percutaneous nephrostolithotomy with ultrasound, placement of 10 J nephrostomy tube right Anesthesia: CATHERINE Surgeon: Eusebio Briggs Estimated Blood Loss (ml): 200 Pathology: other (Stone) Condition: stable Disposition: PACU Indications for Procedure: The patient is 70. She has a large renal pelvic stone 18 mm with high-grade obstruction and several stones totaling the greater stone burden greater than 2 cm throughout the right kidney. Percutaneous nephrostolithotomy. Description of Procedure: Patient brought operating suite. On the transport gurney is given a general endotracheal anesthesia. She's placed in a frog position with a sterile prep and drape. Cystoscopy Foroblique lens and 21-Angolan sheath was performed the bladder is normal. The right ureteral orifice is intubated with a 5-Angolan occluding balloon catheter passed up into the UPJ. His secured to a 16-Angolan Campos Prone position with care to airways and extremities. Dr. Guzman of radiology comes in performed access to a lower pole calyx. Due to the bifid pelvis and angulation were unable to get adequate access despite several attempts We then make a percutaneous stick into an upper pole calyx. This is done by Dr. Guzman of radiology. We're then able to dilate the tract to 30-Angolan and advance the sheath into the collecting system. After clot is removed we pass the rigid scope into the the renal pelvis. The stone is seen. It is quite impacted. With the ultrasound I break it up suction or grasp it out. Then passed the flexible scope throughout the collecting system and basket 5 or 6 different stones between 3 and 8 mm At the end of the procedure a 10 J nephrostomy tube was placed and secured in the renal pelvis and secured to the skin. Ration is awakened and returned recovery room good condition. Blood loss is approximately 200 mL. She tolerated procedure well. Chest x-ray will be obtained as the upper pole stick was just above the 11th rib.
--- NOTE | 2021-09-14 14:12 | FL ---
EXAMINATION TYPE: FL Perc Nephrostomy New Access DATE OF EXAM: 09/14/2021 COMPARISON: NONE HISTORY: Right renal calculus Procedure had been discussed with the patient by Dr. Briggs, risks, benefits, alternatives, were dis cussed and any questions were answered. Informed consent was obtained. The patient was in a semipro ne position prepped and draped on the OR table in the usual sterile fashion. Utilizing a 15 cm lengt h [place] needle a single pass was made into a lower pole posterior calyx under fluoroscopic guidance. An 0.018 guidewire is passed through the needle and there was placement of a 6-[place] catheter sheat h system. There was conversion to a 0.035 system was performed with passage of a guidewire into the ureter utilizing a directional catheter. A second safety wire was placed. Remaining portion of pro cedure performed by . Approximately 8 minutes and 2 seconds of fluoroscopy was provided. IMPRESSION: 1. Successful intraoperative right nephrostomy prior to nephrolithotomy.
--- NOTE | 2021-09-14 14:24 | XR ---
EXAMINATION TYPE: XR chest 1V portable DATE OF EXAM: 09/14/2021 COMPARISON: NONE HISTORY: Post nephrostomy TECHNIQUE: Single frontal view of the chest is obtained. FINDINGS: Subsegmental changes at both lung bases. No sizable pneumothorax or pleural effusion. Hear t size is mildly enlarged. Diffuse osteopenia and arthropathy of the shoulders. Right-sided abdominal drainage catheter is noted. IMPRESSION: 1. Subsegmental atelectasis favored over infiltrate. 2. No evidence of pneumothorax or pleural effusion.
[2021-09-14] MEDS: HYDROmorphone 0.5 MG/0.5 ML SYRINGE IVP PRN ×2 (14:35→14:48)
[2021-09-14] MEDS ORDERED: LACTATED RINGERS 1,000 ML IV ONE (14:38)
[2021-09-14] MEDS: DEXTROSE 5%-0.45% NACL 1,000 ML IV SCH ×2 (16:50→23:08)
[2021-09-14] MEDS ORDERED: DULoxetine HCL 60 MG CAPSULE.DR PO SCH (21:00)
[2021-09-14] MEDS ORDERED: LORATADINE 10 MG TAB PO SCH (21:00)
[2021-09-15] MEDS: LACTATED RINGERS 1,000 ML IV SCH (06:11)
[2021-09-15] MEDS ORDERED: LEVOTHYROXINE 112 MCG TAB PO SCH (06:30)
[2021-09-15] MEDS ORDERED: HYDROcodone/APAP 5-325MG 1 EACH TAB PO PRN (07:50)
[2021-09-15] MEDS ORDERED: MELOXICAM 7.5 MG TAB PO SCH (09:00)
[2021-09-15] MEDS ORDERED: DOXYCYCLINE 50 MG CAP PO SCH (09:00)
[2021-09-15] MEDS ORDERED: BACLOFEN 10 MG TAB PO SCH (09:00)
[2021-09-15] MEDS: DEXTROSE 5%-0.45% NACL 1,000 ML IV SCH (09:02)
[2021-09-15 11:35] VITALS: BP 126/70; PULSE 85; RESP 18; TEMP 97.5
--- NOTE | 2021-09-15 16:50 | P.DS ---
Providers Attending physician: Eusebio Briggs Primary care physician: Kwaku Uriostegui [facility] Course: This is a 70 yo female with hx of right sided renal stone, She underwent right PCNL on 09/[address] Briggs . Please see op note dated 09/14 for surgery details. She was admitted to the hospital post operatively. Her salazar was removed on POD #1. She was discharged home with the nephrostomy tube, at time of discharge she was tolerating a diet, ambulating and pain was well controlled Plan - Discharge Summary Discharge Rx Participant: Yes New Discharge Prescriptions: New Cephalexin [Keflex] 500 mg PO Q8HR #15 cap HYDROcodone/APAP 5-325MG [[place] 5-325] 1 tab PO Q6HR PRN 3 Days #12 tab PRN Reason: Pain No Action Meloxicam [Mobic] 7.5 mg PO DAILY Levocetirizine Dihydrochloride [Xyzal] 5 mg PO HS Ibandronate Sodium [Boniva] 150 mg PO QMONTH Fluticasone Nasal [place] [Flonase Nasal [place]] 1 spray EA NOSTRIL DAILY PRN PRN Reason: Allergic Reaction Acetaminophen Tab [Tylenol Tab] 1,000 mg PO Q6HR PRN PRN Reason: Pain Allergy Injections Weekly 1 dose IM [id number] Doxycycline [Vibramycin] 50 mg PO DAILY Baclofen 10 mg PO DAILY DULoxetine HCL [Cymbalta] 60 mg PO HS Levothyroxine Sodium 112 mcg PO QAM Discharge Medication List Acetaminophen Tab [Tylenol Tab] 1,000 mg PO Q6HR PRN 06/24/19 [History] Allergy Injections Weekly 1 dose IM [id number] 06/24/19 [History] Fluticasone Nasal [place] [Flonase Nasal [place]] 1 spray EA NOSTRIL DAILY PRN 06/24/19 [History] Ibandronate Sodium [Boniva] 150 mg PO QMONTH 06/24/19 [History] Levocetirizine Dihydrochloride [Xyzal] 5 mg PO HS 06/24/19 [History] Meloxicam [Mobic] 7.5 mg PO DAILY 06/24/19 [History] Baclofen 10 mg PO DAILY 09/08/21 [History] DULoxetine HCL [Cymbalta] 60 mg PO HS 09/08/21 [History] Doxycycline [Vibramycin] 50 mg PO DAILY 09/08/21 [History] Levothyroxine Sodium 112 mcg PO QAM 09/08/21 [History] Cephalexin [Keflex] 500 mg PO Q8HR #15 cap 09/15/21 [Rx] HYDROcodone/APAP 5-325MG [[place] 5-325] 1 tab PO Q6HR PRN 3 Days #12 tab 09/15/21 [Rx] Activity/Diet/Wound Care/Special Instructions: Increase fluid intake No heavy lifting or straining It's normal to see blood in the urine You may shower no baths Discharge Disposition: HOME SELF-CARE
== END 2021-09-15 17:47 | disposition home or self-care (01) ==
LOC: OR 08:56 → 5NMEDONC 14:09 → OR 09-15 12:23 → 5NMEDONC 09-15 17:23
PROVIDERS: ADMIT Urology; ATTEND Urology
DX: N20.0 Calculus of kidney (principal); E89.0 Postprocedural hypothyroidism; M21.612 Bunion of left foot; M54.9 Dorsalgia, unspecified; Z20.822 Contact with and (suspected) exposure to COVID-19; J30.2 Other seasonal allergic rhinitis; Z79.1 Long term (current) use of non-steroidal anti-inflammatories (NSAID); Z88.8 Allergy status to other drugs, medicaments and biological substances; Z88.1 Allergy status to other antibiotic agents; Z98.890 Other specified postprocedural states; Z87.442 Personal history of urinary calculi; Z85.850 Personal history of malignant neoplasm of thyroid; Z98.41 Cataract extraction status, right eye; Z98.42 Cataract extraction status, left eye; Z96.1 Presence of intraocular lens; Z80.42 Family history of malignant neoplasm of prostate
CPT/HCPCS: 50081; 86900; 86901; 86850; 82365; 87635; 50432; 71045; 74018; G0378; C1769 ×5; C2628; C1894; C1729; J2250; J2405; J0690; J2001; J3010; J0330; J2704; J1170 ×2; Q9967

== ENCOUNTER → 2021-11-15 | Outpatient (CLI) | payer MEDICARE | END | disposition home or self-care (01) | LOC: LABWHC1 07:34 | PROVIDERS: ATTEND Urology | DX: N20.0 Calculus of kidney (principal) | CPT/HCPCS: 36415 ==

== ENCOUNTER → 2021-11-18 | Outpatient (CLI) | payer MEDICARE ==
[2021-11-19 13:47] LABS: Coronavirus SARS CoV-2 Not Detected (Not Detected)
== END | disposition home or self-care (01) ==
LOC: LABWHC1 13:26
PROVIDERS: ATTEND Ophthalmology
DX: H02.055 Trichiasis without entropion left lower eyelid (principal)
CPT/HCPCS: U0003; U0005

== ENCOUNTER 2021-12-01 13:10 | Observation (INO) | payer MEDICARE ==
[2021-12-01 14:01] LABS: Basophils % (A) 1 %; Eosinophils # (A) 0.1 k/uL (0-0.7); Eosinophils % (A) 3 %; HCT 43.2 % (34.0-46.0); HGB 14.4 gm/dL (11.4-16.0); Lymphocytes # (A) 1.3 k/uL (1.0-4.8); Lymphocytes % (A) 28 %; MCH 30.1 pg (25.0-35.0); MCHC 33.3 g/dL (31.0-37.0); MCV 90.3 fL (80.0-100.0); Mean Platelet Volume 7.5; Monocytes # (A) 0.2 k/uL (0-1.0); Monocytes % (A) 5 %; Neutrophils # (A) 2.7 k/uL (1.3-7.7); Neutrophils % (A) 61 %; Platelet Count 163 k/uL (150-450); RBC 4.79 m/uL (3.80-5.40); WBC 4.4 k/uL (3.8-10.6)
[2021-12-01 14:13] LABS: Albumin 4.2 g/dL (3.5-5.0); Magnesium 1.9 mg/dL (1.6-2.3); Potassium 3.6 mmol/L (3.5-5.1); Total Bilirubin 0.3 mg/dL (0.2-1.3); Total Protein 6.7 g/dL (6.3-8.2)
[2021-12-01 14:16] LABS: INR 0.9 (<1.2); Partial Thromboplastin Time 24.1 sec (22.0-30.0); Prothrombin Time 10.2 sec (9.0-12.0)
--- NOTE | 2021-12-01 14:32 | XR ---
EXAMINATION TYPE: XR chest 2V DATE OF EXAM: 12/01/2021 COMPARISON: Chest x-ray September 14, 2021 HISTORY: Shortness of breath with exertion. TECHNIQUE: Frontal and lateral views of the chest are obtained. FINDINGS: There is mild chronic parenchymal change without suspicious new focal air space opacity, p leural effusion, or pneumothorax seen. The cardiac silhouette size is mildly enlarged. The osseous structures are demineralized. Underlying Scoliosis is present. IMPRESSION: Chronic changes and mild cardiomegaly without acute pulmonary process.
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
[2021-12-01] MEDS ORDERED: NALOXONE 0.4 MG/ML 1 ML VIAL IV PRN (15:24)
[2021-12-01] MEDS ORDERED: ASPIRIN 81 MG PO STA (15:27)
[2021-12-01] MEDS ORDERED: FLUTICASONE 50MCG/SPRAY NASAL 16GM EA NOSTRIL PRN (16:20)
[2021-12-01] MEDS ORDERED: ACETAMINOPHEN TAB 325 MG TAB PO PRN (16:23)
[2021-12-01] MEDS: DULoxetine HCL 20 MG CAPSULE.DR PO SCH (20:17)
[2021-12-01] MEDS ORDERED: LORATADINE 10 MG TAB PO SCH (21:00)
[2021-12-02] MEDS ORDERED: LEVOTHYROXINE 100 MCG TAB PO SCH (07:30)
[2021-12-02] MEDS: DULoxetine HCL 20 MG CAPSULE.DR PO SCH (08:09)
[2021-12-02] MEDS ORDERED: DOBUTamine DRIP for NUC MED 500 MG in DEXTROSE/WATER 1 250ML.BAG IV PRN (08:41)
[2021-12-02] MEDS ORDERED: MELOXICAM 7.5 MG TAB PO SCH (09:00)
[2021-12-02 09:20] LABS: African American GFR (CKD) 84.8 (60.0-200.0); Anion Gap 10.2 mmol/L (10.00-18.00); BUN/Creat Ratio 23.5 Ratio (12.00-20.00); Blood Urea Nitrogen 18.8 mg/dL (9.0-27.0); Calcium 8.9 mg/dL (8.7-10.3); Carbon Dioxide 26.8 mmol/L (20.0-27.5); Magnesium 2.3 mg/dL (1.5-2.4); Non-African American GFR(CKD) 73.1 (60.0-200.0); Potassium 3.9 mmol/L (3.5-5.5)
[2021-12-02 11:47] LABS: Basophils # (A) 0.03 X 10*3/uL (0.00-0.10); Basophils % (A) 0.7 %; Eosinophils # (A) 0.19 X 10*3/uL (0.04-0.35); Eosinophils % (A) 4.3 %; HCT 43.8 % (37.2-46.3); HGB 14.2 g/dL (12.0-15.0); Immature Grans, Automated 0.2 %; Lymphocytes # (A) 1.55 X 10*3/uL (0.90-5.00); Lymphocytes % (A) 34.7 %; MCH 29.6 pg (27.0-32.0); MCHC 32.4 g/dL (32.0-37.0); MCV 91.3 fL (80.0-97.0); Mean Platelet Volume 10.1 fL (9.5-12.2); Monocytes # (A) 0.37 X 10*3/uL (0.20-1.00); Monocytes % (A) 8.3 %; NRBC Per 100 WBC 0 /100 WBCS (0.0-0.0); Neutrophils # (A) 2.32 X 10*3/uL (1.80-7.70); Neutrophils % (A) 51.8 %; Platelet Count 156 X 10*3/uL (140-440); RDW 12.7 % (11.5-14.5); WBC 4.47 X 10*3/uL (4.50-10.00)
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
--- NOTE | 2021-12-02 12:31 | P.STRESS ---
- Stress Test Note Stress Test Results/Findings: Exam Performed: dobutamine stress echo with con Exam Date: 12/02/21 Reason for Exam: Chest Pain Height: 5 ft 4 in Weight: 72.57 kg Protocol: Dobutamine Stage: 30 Duration of Exercise: 10:19 Resting Heart Rate: 64 Resting Blood Pressure: 155/100 Maximum Achieved Heart Rate: 126 Maximum Achieved Blood Pressure: 148/66 85% PMHR: 125 100% PMHR: 147 METS: na Technologist Comment: Stress Test Results/Findings: Baseline heart rate 64 beats a minute, Baseline blood pressure 129/68 mmHg Baseline twelve-lead EKG shows sinus rhythm with T-wave inversions in the inferior leads as well as the precordial leads Patient received dobutamine infusion up to 40 mics. Peak heart rate 125 beats a minute. Normal blood pressure response Occasional PVCs with dobutamine 0.[address] depression There was a stepwise increment and overall LV contractility without any wall motion abnormalities @[facility] regional global LV systolic function remained normal Impression No ECG or echocardiographic evidence for ischemia on the stress echo Excellent augmentation of overall LV contractility
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
--- NOTE | 2021-12-02 13:02 | P.DS ---
Providers Date of admission: 12/01/21 15:27 Expected date of discharge: 12/02/21 Attending physician: Kwaku Uriostegui Consults: 12/01/21 15:25 Consult Physician Urgent Consulting Provider: [facility] Consult Reason/Comments: acute chest pain Do you want consulting provider notified?: Yes Primary care physician: Kwaku Uriostegui [place] [facility] Course: Patient is a very pleasant 71-year-old female that presented to the emergency room with chest pain and shortness of breath. She reported having a few episodes of shortness of breath and chest pain over the past couple of weeks. She describes the chest pain as tightness, that comes on with exertion and goes away with rest. Patient has a pertinent medical history of thyroid cancer with thyroidectomy, previous kidney stones and bilateral eye surgeries. Chest x-ray showed chronic changes and mild cardiomegaly without acute pulmonary processes. EKG found sinus rhythm, with ST depression in leads II, V3,V4, V5, V6. T roponins were negative. Cardiology was consulted to rule out ACS. Patient is to undergo stress test. Stress test is negative for ischemia, patient is asymptomatic. Will start Protonix for possible GERD. Patient is stable to be discharged home, will follow up in the office next week Assessment: Chest pain, ruled out ACS Exertional dyspnea Recurrent dizziness Hypothyroidism Health Concerns: multiple comorbidities Pertinent Studies: chest x-ray showed chronic changes and mild cardiomegaly EKG showed sinus rhythm with ST segment changes Stress test showed no echocardiographic evidence for ischemia, excellent augmentation of overall LV contractility Patient Condition at Discharge: Stable Plan - Discharge Summary Discharge Rx Participant: No New Discharge Prescriptions: New Pantoprazole Sodium [Protonix] 40 mg PO -BRKFST 30 Days #30 tab Continue Meloxicam [Mobic] 7.5 mg PO DAILY Levocetirizine Dihydrochloride [Xyzal] 5 mg PO HS Fluticasone Nasal [place] [Flonase Nasal [place]] 2 spray EA NOSTRIL DAILY PRN PRN Reason: Allergic Reaction DULoxetine HCL [Cymbalta] 20 mg PO BID Levothyroxine Sodium [Synthroid] 100 mcg PO DAILY cycloSPORINE 0.05% OPHTH SOLN [Restasis] 1 drop BOTH EYES Q12H Discharge Medication List Fluticasone Nasal [place] [Flonase Nasal [place]] 2 spray EA NOSTRIL DAILY PRN 06/24/19 [History] Levocetirizine Dihydrochloride [Xyzal] 5 mg PO HS 06/24/19 [History] Meloxicam [Mobic] 7.5 mg PO DAILY 06/24/19 [History] DULoxetine HCL [Cymbalta] 20 mg PO BID 12/01/21 [History] Levothyroxine Sodium [Synthroid] 100 mcg PO DAILY 12/01/21 [History] cycloSPORINE 0.05% OPHTH SOLN [Restasis] 1 drop BOTH EYES Q12H 12/01/21 [History] Pantoprazole Sodium [Protonix] 40 mg PO AC-BRKFST 30 Days #30 tab 12/02/21 [Rx] Follow up Appointment(s)/Referral(s): Kwaku Uriostegui MD [Primary Care Provider] - 1-2 days Dave Lopez MD [STAFF PHYSICIAN] - 4 Weeks (Follow-up with Dr. Lopez/Brittany Cruz in 3-4 weeks) Discharge Disposition: HOME SELF-CARE
[2021-12-02 14:38] VITALS: RESP 18; TEMP 98.4
[2021-12-02 16:02] VITALS: BP 120/78; PULSE 71
--- NOTE | 2021-12-06 15:01 | ECHOF ---
Referral Reason:dyspnea MEASUREMENTS -------- HEIGHT: 162.6 cm WEIGHT: 72.6 kg BP: 132/75 RVIDd: 3.0 cm (< 3.3) IVSd: 1.0 cm (0.6 - 1.1) LVIDd: 4.6 cm (3.9 - 5.3) LVPWd: 1.0 cm (0.6 - 1.1) IVSs: 1.8 cm LVIDs: 3.3 cm LVPWs: 1.6 cm LA Diam: 3.4 cm (2.7 - 3.8) LAESV Index (A-L): 25.94 ml/m Ao Diam: 3.2 cm (2.0 - 3.7) AV Cusp: 1.9 cm (1.5 - 2.6) MV EXCURSION: 14.230 mm (> 18.000) MV EF SLOPE: 64 mm/s (70 - 150) EPSS: 1.0 cm MV E Nikhil: 0.67 m/s MV DecT: 321 ms MV A Nikhil: 0.86 m/s MV E/A Ratio: 0.78 RAP: 5.00 mmHg RVSP: 15.84 mmHg FINDINGS -------- Sinus rhythm. This was a technically adequate study. The left ventricular size is normal. Left ventricular wall thickness is normal. Overall left vent ricular systolic function is normal with, an EF between 60 - 65 %. The right ventricle is normal in size. Normal LA size by volume 22+/-6 ml/m2. The right atrium is normal in size. Interatrial and interventricular septum intact. The aortic valve is trileaflet, and appears structurally normal. No aortic stenosis or regurgitation. The mitral valve is normal. Mild tricuspid regurgitation present. Right ventricular systolic pressure is normal at < 35 mmHg. Trace/mild (physiologic) pulmonic regurgitation. The aortic root size is normal. Normal inferior vena cava with normal inspiratory collapse consistent with estimated right atrial pre ssure of 5 mmHg. There is a trivial pericardial effusion present. CONCLUSIONS -------- 1. The left ventricular size is normal. 2. Left ventricular wall thickness is normal. 3. Overall left ventricular systolic function is normal with, an EF between 60 - 65 %. 4. Mild tricuspid regurgitation present. 5. Trace/mild (physiologic) pulmonic regurgitation. 6. There is a trivial pericardial effusion present. ROLL TRUCKER: Jayashree Avina RDCS
== END 2021-12-02 16:35 | disposition home or self-care (01) ==
LOC: EC 13:10 → 6NMEDSUR 15:27
PROVIDERS: ADMIT Family Medicine; ATTEND Family Medicine
DX: R07.89 Other chest pain (principal); R06.09 Other forms of dyspnea; R42 Dizziness and giddiness; R06.02 Shortness of breath; R94.31 Abnormal electrocardiogram [ECG] [EKG]; R53.83 Other fatigue; I07.1 Rheumatic tricuspid insufficiency; E89.0 Postprocedural hypothyroidism; M54.9 Dorsalgia, unspecified; E66.9 Obesity, unspecified; Z68.27 Body mass index [BMI] 27.0-27.9, adult; Z85.850 Personal history of malignant neoplasm of thyroid; Z87.442 Personal history of urinary calculi; Z79.1 Long term (current) use of non-steroidal anti-inflammatories (NSAID); Z79.899 Other long term (current) drug therapy; Z79.890 Hormone replacement therapy; Z88.8 Allergy status to other drugs, medicaments and biological substances; Z80.42 Family history of malignant neoplasm of prostate
CPT/HCPCS: 99285; 36415; 93005; 93306; 85379; 83880; 80053; 80048; 84443; 82533; 83605; 83735 ×2; 84484; 85025 ×2; 85610; 85730; 71046; G0378 ×2; C8930; Q9950; 93351

== ENCOUNTER → 2022-04-21 | Outpatient (CLI) | payer MEDICARE ==
--- NOTE | 2022-04-21 10:40 | US ---
EXAMINATION TYPE: US transvaginal DATE OF EXAM: 04/21/2022 COMPARISON: CT abdomen and pelvis September 06, 2021. CT pelvis 2019. CLINICAL HISTORY: N83.0 FOLLICULAR CYST OF LEFT OVARY. TECHNIQUE: Transvaginal (TV) and Transabdominal (TA) . Date of LMP: post menopausal patient EXAM MEASUREMENTS: Uterus: 6.2 x 2.3 x 3.2 cm Endometrial Stripe: 0.2 cm Right Ovary: possible right ovary measures 9 x 5 mm Left Ovary: probable left ovary 6.4 x 4.9 x 5.1cm 1. Uterus: Anteverted wnl 2. Endometrium: fluid in endocervical canal measuring 0.5cm 3. Right Ovary: wnl 4. Left Ovary: large cystic structure believed to be left ovary with no visualization of ovarian rind . 5. Bilateral Adnexa: wnl 6. Posterior cul-de-sac: wnl Anteverted uterus. No free fluid in pelvic cul-de-sac. There is 6.4 cm thin-walled oval shaped simple cyst with smooth margins in the left pelvis presumed o f ovarian origin is slightly larger in size from [address] to recent CT abnormality. IMPRESSION: As above. O-RADS 2 lesion. Almost certainly benign. Advise annual ultrasound surveillance .
== END | disposition home or self-care (01) ==
LOC: RADUSWWP 09:24
PROVIDERS: ATTEND Obstetrics & Gynecology
DX: N83.02 Follicular cyst of left ovary (principal)
CPT/HCPCS: 76830

== ENCOUNTER → 2022-05-26 | Outpatient (CLI) | payer MEDICARE ==
--- NOTE | 2022-05-26 18:05 | XR ---
EXAMINATION TYPE: XR KUB DATE OF EXAM: 05/26/2022 Comparison: 09/14/2021 Clinical History: 71-year-old female [id number], prior percutaneous nephrostomy on 09/14/2021 Findings: A couple right-sided renal calculi measuring up to 4 mm. Some of the mid and lower pole calculi are n o longer seen. Right-sided pelvic phleboliths. Nonobstructive bowel gas pattern. Mild stool burden. D egenerated levoconvex curvature of the lumbar spine. Impression: Right-sided nephrolithiasis with a couple calculi remaining measuring up to 4 mm. Mid and lower pole calculi seen on prior exam are no longer appreciated.
== END | disposition home or self-care (01) ==
LOC: RADXRMAIN 10:32
PROVIDERS: ATTEND Urology
DX: N20.0 Calculus of kidney (principal)
CPT/HCPCS: 74018

== ENCOUNTER → 2022-06-12 | Outpatient (CLI) | payer MEDICARE ==
--- NOTE | 2022-06-12 13:58 | XR ---
EXAMINATION TYPE: XR lumbosacral spine min 4V DATE OF EXAM: 06/12/2022 CLINICAL HISTORY: Lumbago with sciatica. TECHNIQUE: Frontal, lateral, and oblique images of the lumbar spine are obtained. COMPARISON: Lumbar spine x-ray October 07, 2019 FINDINGS: There are 5 lumbar type vertebral bodies redemonstrated. The lumbar spine shows stable an d straightened alignment. Grade 1 anterolisthesis L2 on L3 is seen. Levoconvex scoliotic curvature ce ntered at L2-L3 level redemonstrated.. Vertebral body heights remain normal limits. Moderate to sever e disc space narrowing and spurring with vacuum disc phenomenon at right L2-L3 and L3-L4 levels redem onstrated. Moderate to severe disc space narrowing with vacuum disc phenomenon and endplate sclerosis at L5-S1 level redemonstrated. The oblique images value is degraded by overlying scoliosis.. There are 2 right-sided renal calculi suspected upper pole level measuring up to 6 mm in size current exam. IMPRESSION: As above.
== END | disposition home or self-care (01) ==
LOC: RADXRMAIN 11:55
PROVIDERS: ATTEND Family Medicine
DX: M54.42 Lumbago with sciatica, left side (principal)
CPT/HCPCS: 72110

== ENCOUNTER → 2022-08-30 | Outpatient (CLI) | payer MEDICARE ==
--- NOTE | 2022-08-30 21:50 | MR ---
EXAMINATION TYPE: MR lumbar spine wo/w con DATE OF EXAM: 08/30/2022 COMPARISON: Lumbar spine x-ray June 12, 2022 HISTORY: Low back pain that radiates down left leg, sometimes right leg. TECHNIQUE: Multiplanar, multisequence images of the lumbar spine is performed without and with IV contrast, util izing 7 mL intravenous Gadavist FINDINGS: Coronal images redemonstrate dextroconvex scoliosis centered at the lumbosacral junction. S light grade 1 anterolisthesis L2 on L3. Sagittal images of the lumbar spine redemonstrate vertebral b bert heights to appear satisfactory. Multilevel disc desiccation. Moderate disc space narrowing L2-L3, L3-L4, and L5-S1 levels. The conus medullaris is normal in position and signal ending mid L1 level. There is overall heterogeneity with Modic type III endplate changes at the L2-L3 level. No abnormal p ostcontrast enhancement is seen.. Axial images show posterior disc herniations minimally effaces the anterior thecal sac at T10-11 and T11-T12 levels. Axial images at the T12-L1 level appear within normal limits. Axial images at L1-L2 level show mild broad disc bulge minimally effaces the anterior thecal sac luci g with mild to moderate facet arthropathy and ligamentum flavum hypertrophy effacing the posterior la teral thecal sac. There is mild right-sided neural foraminal narrowing. Axial images at L2-L3 level shows spondylolisthesis with moderate broad-based disc bulge effacing the anterior thecal sac. There is moderate right greater than left facet arthropathy ligamentum flavum h ypertrophy causing moderate inferior right-sided neural foraminal narrowing. There is [id number] e inferior left-sided neural foraminal narrowing. Axial images at the L3-L4 level show moderate broad disc bulge. There is mild bilateral anterior infe rior neural foraminal narrowing. There is moderate bilateral facet arthropathy and Ligamentum flavum hypertrophy effacing the posterior lateral thecal sac. There is mild left and mild to moderate right- sided anterior inferior neural foraminal narrowing. Axial images at the L4-L5 level shows moderate facet arthropathy and ligamentum flavum hypertrophy. T here is [id number] broad disc bulge with left paracentral disc extrusion extending superiorly. Effacement of the anterolateral thecal sac and lateral recess. There is advanced left-sided neural fo raminal narrowing and likely encroachment on the exiting left L4 nerve. Enhancing scar tissue at this level is seen. Right-sided neural foramen is patent. Axial images at the L5-S1 level shows [id number] facet arthropathy bilaterally. There is mild b road disc bulge. There is mild left-sided anterior inferior neural foraminal narrowing. Right-sided n eural foramen is patent. There are simple appearing thin-walled parapelvic cysts centrally in both kidneys more prominent in t he size within the left kidney. IMPRESSION: Scoliosis and multilevel degenerative change in the lumbar spine as detailed above.
== END | disposition home or self-care (01) ==
LOC: RADMRIMAIN 08:19
PROVIDERS: ATTEND Family Medicine
DX: C34.11 Malignant neoplasm of upper lobe, right bronchus or lung (principal); M47.26 Other spondylosis with radiculopathy, lumbar region; M41.9 Scoliosis, unspecified
CPT/HCPCS: 72158; A9585

== ENCOUNTER → 2022-09-18 | Outpatient (CLI) | payer MEDICARE ==
--- NOTE | 2022-09-19 06:40 | MM ---
Reason for Exam: Screening (asymptomatic). Last mammogram was performed 1 year(s) and 1 month(s) ago. Patient History: Menarche at age 11. First Full-Term at age 26. Postmenopausal. Other cancer, age 50. Patient used Hormonal Contraceptives for 7 years. Maternal aunt had breast cancer, age 75. Risk Values: Sabi 5 year model risk: 2.0%. NCI Lifetime model risk: 4.8%. Prior Study Comparison: 08/30/2019 Bilateral Screening Mammogram, [facility]. 08/31/2020 Bilateral Screening Mammogram, [facility]. 09/01/2021 Bilateral Screening Mammogram, [facility]. Tissue Density: The breast tissue is heterogeneously dense. This may lower the sensitivity of mammography. Findings: Analyzed By CAD. Stable 3 mm round circumscribed mass in the right breast anterior outer aspect. Benign-appearing bilateral axillary lymph nodes are redemonstrated. There is no suspicious new group of microcalcifications or new suspicious mass in either breast. Overall Assessment: Benign, BI-RAD 2 Management: Screening Mammogram of both breasts in 1 year. A clinical breast exam by your physician is recommended on an annual basis and results should be correlated with mammographic findings. Electronically signed and approved by: Don Bettencourt M.D.
== END | disposition home or self-care (01) ==
LOC: RADMAMWWP 07:27
PROVIDERS: ATTEND Obstetrics & Gynecology
DX: Z12.31 Encounter for screening mammogram for malignant neoplasm of breast (principal); Z78.0 Asymptomatic menopausal state; Z80.3 Family history of malignant neoplasm of breast
CPT/HCPCS: 77063; 77067

== ENCOUNTER → 2022-09-18 | Outpatient (CLI) | payer MEDICARE ==
--- NOTE | 2022-09-18 10:37 | BD ---
EXAMINATION TYPE: Axial Bone Density DATE OF EXAM: 09/18/2022 COMPARISON: 08.30.2020 CLINICAL HISTORY: 71 years year old Female. ICD-10 CODE: Z78.0 MENOPAUSAL STATE Height: 63.2 Weight: 163 FRAX RISK QUESTIONS: Family History (Parent hip fracture): YES Glucocorticoids (More than 3mos): YES (Ex: prednisone, prednisolone, methylprednisolone, dexamethasone, and hydrocortisone). History of Fracture in Adulthood: YES RISK FACTORS HISTORY OF: HX OF PATELLA AND FOOT FX AN ADULT, Surgery to Spine LAMINECTOMY IN CERVICAL SPINE 2014 Family History of Osteoporosis: YES, MOTHER Postmenopausal woman: YES, 50 YRS Take estrogen and/or progesterone medications: YES, IN PAST FOR ABOUT 2 YRS Hyperparathyroidism: NO Adrenal Insufficiency: NO MEDICATIONS: Prednisone or other steroids: YES, ON AND OFF FOR YRS Thyroid Medications: YES, SYNTHROID, FOR ABOUT 12-13 YRS Osteoporosis Medications: BONIVA MONTHLY 11 YRS...OFF NOW Additional Medications: RADIATION FOR THYROID, CALCIUM, MOBIC, VIT D, STATIN FOR CHOLESTEROL, Additional History: THYROID CA, EYE SURGERIES, SCOLIOSIS, OSTEOARTHRITIS, 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 Bone mineral density as measured about the Lumbar spine is: ----- L1-L4(G/cm2): 1.184 T Score Values are as follows: ----- L1: -1.9 ----- L2: -0.8 ----- L3: 0.4 ----- L4: 1.7 ----- L1-L4: 0.0 Bone mineral density has: Decreased -6.1% since study of: 08.30.2020 Bone mineral density about the R hip (g/cm2): 0.960 Bone mineral density about the L hip (g/cm2): 1.002 T Score values are as follows: -----R Neck: -0.9 -----L Neck: -0.7 -----R Total: -0.4 -----L Total: 0.0 Bone mineral density has: Increased 0.4% since study of: 08.30.2020 FRAX%s: The graph provided illustrates a 30.8% chance for a major osteoporotic fx and a 10.7% chance for the hips probability for fx in 10 years time. IMPRESSION: Normal (Values between +1 and -1 indicate normal bone mass). Consider repeating this study in 5 year s or sooner if there is some new clinical indication. NOTE: T-SCORE=SD OF THE YOUNG ADULT MEAN.
== END | disposition home or self-care (01) ==
LOC: RADBDWWP 07:29
PROVIDERS: ATTEND Internal Medicine
DX: Z78.0 Asymptomatic menopausal state (principal); Z79.52 Long term (current) use of systemic steroids; Z79.1 Long term (current) use of non-steroidal anti-inflammatories (NSAID)
CPT/HCPCS: 77080

== ENCOUNTER → 2022-10-05 | Outpatient (CLI) | payer MEDICARE | END | disposition home or self-care (01) | LOC: LABWHC1 13:23 | PROVIDERS: ATTEND Neurological Surgery | DX: Z01.818 Encounter for other preprocedural examination (principal); R94.31 Abnormal electrocardiogram [ECG] [EKG]; M48.00 Spinal stenosis, site unspecified | CPT/HCPCS: 36415; 93005 ==

== ENCOUNTER → 2023-09-19 | Outpatient (CLI) | payer MEDICARE ==
--- NOTE | 2023-09-20 14:53 | MM ---
Reason for Exam: Screening (asymptomatic). Last screening mammogram was performed 12 month(s) ago. Patient History: Menarche at age 11. First Full-Term at age 26. Postmenopausal. Other cancer, age 50. Patient used Hormonal Contraceptives for 7 years. Maternal aunt had breast cancer, age 75. Risk Values: Sabi 5 year model risk: 2.0%. NCI Lifetime model risk: 4.5%. Prior Study Comparison: 08/31/2020 Bilateral Screening Mammogram, [facility]. 09/01/2021 Bilateral Screening Mammogram, [facility]. 09/18/2022 Bilateral MG 3D screening mammo w/cad, [facility]. Tissue Density: The breast tissue is heterogeneously dense. This may lower the sensitivity of mammography. Findings: Analyzed By CAD. There is no suspicious group of microcalcifications or new suspicious mass. Overall Assessment: Negative, BI-RAD 1 Management: Screening Mammogram of both breasts in [address] [facility] will attempt to contact patient to return for supplemental views and ultrasound if indicated. Patient should continue monthly self-breast exams. A clinical breast exam by your physician is recommended on an annual basis. This exam should not preclude additional follow-up of suspicious palpable abnormalities. Note on Sabi scores and lifetime risk: 1. A Sabi score greater than 3% is considered moderate risk. If this is the case, consider specialist referral to assess eligibility for a risk reducing agent. 2. If overall lifetime risk for the development of breast cancer is 20% or higher, the patient may qualify for future screening with alternating mammogram and breast MRI. Electronically signed and approved by: Duane Williamson DO
== END | disposition home or self-care (01) ==
LOC: RADMAMWWP 09:45
PROVIDERS: ATTEND Obstetrics & Gynecology
DX: Z12.31 Encounter for screening mammogram for malignant neoplasm of breast (principal); Z78.0 Asymptomatic menopausal state; Z80.3 Family history of malignant neoplasm of breast
CPT/HCPCS: 77063; 77067

== ENCOUNTER → 2024-09-22 | Outpatient (CLI) | payer MEDICARE ==
--- NOTE | 2024-09-22 09:45 | MM ---
Reason for Exam: Screening (asymptomatic). Last screening mammogram was performed 12 month(s) ago. Patient History: Menarche at age 11. First Full-Term at age 26. Postmenopausal. Other cancer, age 50. Patient used Hormonal Contraceptives for 7 years. Maternal aunt had breast cancer, age 75. Risk Values: Sabi 5 year model risk: 2.0%. NCI Lifetime model risk: 4.2%. Prior Study Comparison: 09/01/2021 Bilateral Screening Mammogram, [facility]. 09/18/2022 Bilateral MG 3D screening mammo w/cad, [facility]. 09/19/2023 Bilateral MG 3D screening mammo w/cad, [facility]. Tissue Density: The breasts are heterogeneously dense, which may obscure small masses. Findings: Analyzed By CAD. Right breast: There is no suspicious group of microcalcifications or new suspicious mass. Left breast: There is no suspicious group of microcalcifications or new suspicious mass. Overall Assessment: Negative, BI-RAD 1 Management: Screening Mammogram of both breasts in [address] [facility] will attempt to contact patient to return for supplemental views and ultrasound if indicated. Patient should continue monthly self-breast exams. A clinical breast exam by your physician is recommended on an annual basis. This exam should not preclude additional follow-up of suspicious palpable abnormalities. Note on Sabi scores and lifetime risk: 1. A Sabi score greater than 3% is considered moderate risk. If this is the case, consider specialist referral to assess eligibility for a risk reducing agent. 2. If overall lifetime risk for the development of breast cancer is 20% or higher, the patient may qualify for future screening with alternating mammogram and breast MRI. [facility], , 09/22/2024 9:42 AM. Electronically signed and approved by: Duane Williamson DO
--- NOTE | 2024-09-22 13:08 | BD ---
EXAMINATION TYPE: Axial Bone Density DATE OF EXAM: 09/22/2024 CLINICAL HISTORY: 73 years old Female. ICD-10 CODE: Z78.0 MENOPAUSAL , Additional History: Height: 63 Weight: 163.0 FRAX RISK QUESTIONS: Alcohol (3 or more units per day): no Family History (Parent hip fracture): yes Glucocorticoids (More than 3mos): no (Ex: prednisone, prednisolone, methylprednisolone, dexamethasone, and hydrocortisone). History of Fracture in Adulthood: yes Secondary Osteoporosis: 1. Type 1 Diabetes: no 2. Hyperthyroidism: no 3. Menopause before 45: no 4. Malnutrition: no 5. Chronic liver disease: no Rheumatoid Arthritis: no Current Tobacco Use: no RISK FACTORS HISTORY OF: Surgery to Spine/Hip(right/left)/Wrist (right/left): fusion l-spine When: MEDICATIONS: Thyroid Medications: synthroid How Long: since 2000 EXAM MEASUREMENTS: Bone mineral densitometry was performed using the [employer] System. Bone mineral density about the R hip (g/cm2): 0.984 Bone mineral density about the L hip (g/cm2): 1.002 T Score values are as follows: -----R Neck: -1.0 -----L Neck: -1.0 -----R Total: -0.2 -----L Total: 0.0 Z Score values are as follows: -----R Neck: 0.8 -----L Neck: 0.8 -----R Total: 1.4 -----L Total: 1.5 Bone mineral density has: increased 1.2 % since study of: 09.18.2022 Bone mineral density about the L Wrist (g/cm2): 0.684 T Score values are as follows: -----Dist. R+U: 0.0 -----Prox. R+U: 0.0 -----Radius total: 0.2 Z Score values are as follows: -----Dist. R+U: 2.4 -----Prox. R+U: 2.4 -----Radius total: 2.5 Bone mineral density : baseline FRAX%s: The graph provided illustrates a 22.7% chance for a major osteoporotic fx and a 9.2% chance f or the hips probability for fx in 10 years time. IMPRESSION: Normal (Values between +1 and -1 indicate normal bone mass). However, note that measurements are bor dering on osteopenia at both hips. Consider repeating this study in 5 years or sooner if there is some new clinical indication. NOTE: T-SCORE=SD OF THE YOUNG ADULT MEAN. [facility], Workstation: [facility], 09/22/2024 1:06 PM
== END | disposition home or self-care (01) ==
LOC: RADMAMWWP 08:56
PROVIDERS: ATTEND Family Medicine
DX: Z12.31 Encounter for screening mammogram for malignant neoplasm of breast (principal); R92.333 Mammographic heterogeneous density, bilateral breasts; Z78.0 Asymptomatic menopausal state; Z80.3 Family history of malignant neoplasm of breast; Z92.0 Personal history of contraception
CPT/HCPCS: 77063; 77067; 77080